=== PATIENT | female | born 1960 | race African-American/Black ===

== ENCOUNTER → 2020-02-22 | Day surgery (SDC) | payer BC ==
[2020-02-19 10:23] LABS: BASOPHILS # (AUTO) 0.1 (0.0-0.1); BASOPHILS % 0.6 % (0.0-1.0); EOSINOPHILS # (AUTO) 0.3 (0.0-0.4); EOSINOPHILS % 3.5 % (0.0-6.0); HEMATOCRIT 42.7 % (34.2-44.1); HEMOGLOBIN 13.2 g/dL (12.0-16.0); LYMPHOCYTES # (AUTO) 2.4 (1.0-3.2); LYMPHOCYTES % 29.9 % (18.0-39.1); MEAN CORPUSCULAR HEMOGLOBIN 29.1 pg (28-32); MEAN CORPUSCULAR HGB CONC 30.9 g/dL (31-35); MEAN CORPUSCULAR VOLUME 94.1 fL (81-99); MONOCYTES # (AUTO) 0.6 (0.2-0.8); MONOCYTES % 7.9 % (4.4-11.3); NEUTROPHILS # (AUTO) 4.6 (2.1-6.9); NEUTROPHILS % 57.8 % (38.7-80.0); PLATELET COUNT 312 x10e3/uL (140-360); RED BLOOD COUNT 4.54 x10e6/uL (3.6-5.1); RED CELL DISTRIBUTION WIDTH 14.6 % (11.7-14.4)
[2020-02-19 10:41] LABS: ALANINE AMINOTRANSFERASE 12 IU/L (0-55); ALBUMIN 3.6 g/dL (3.5-5.0); ALBUMIN/GLOBULIN RATIO 0.9 (0.8-2.0); ALKALINE PHOSPHATASE 123 IU/L (40-150); ANION GAP 10.1 mmol/L (8-16); BLOOD UREA NITROGEN 9 mg/dL (7-26); BUN/CREATININE RATIO 11 (6-25); CALCIUM 9.3 mg/dL (8.4-10.2); CARBON DIOXIDE 25 mmol/L (22-29); CHLORIDE 110 mmol/L (98-107); CREATININE, SERUM 0.82 mg/dL (0.57-1.11); EST GLOMERULAR FILTRATION RATE > 60 ML/MIN (60-); GLUCOSE 80 mg/dL (74-118); POTASSIUM 4.1 mmol/L (3.5-5.1); SODIUM 141 mmol/L (136-145)
[2020-02-19 10:54] LABS: INR 0.95; PROTHROMBIN TIME 13.2 seconds (11.9-14.5)
[2020-02-22] VITALS (11 sets, daily range): BP systolic 118–151; BP diastolic 61–77
[~2020-02-22] VITALS: Ht 151.1 cm; Wt 78.0 kg
[~2020-02-22] MED LIST: ASPIRIN EC81 MG PO; CLOPIDOGREL75 MG PO; FENTANYL CITRATE/PF 100MCG/2 ML INJ ONE; HEPARIN SOD/SOD CHLORIDE 2,000 ML ONE; IOPAMIDOL 300MG/ML 100 ML INFUS..BTL IV ONE; ISOSORBIDE MONO30 MG PO; LIDOCAINE HCL 2% LOCAL 20 ML VIAL ONE; LIPITOR20 MG PO; LISINOPRIL10 MG PO; METOPROLOL SUCC25 MG PO; MIDAZOLAM HCL 2 MG/2 ML VIAL ONE; SODIUM CHLORIDE 0.9% 1000ML 1,000 ML ONE
--- NOTE | 2020-02-22 09:17 | NUR ---
0917 am PREP NOTE PROCEDRAL .................................................................................. pt in #9, prepped for procedure. Alert oriented and appropriate, PERRLA, respirations even and unlabored to room air. Pulses x4 extremities equal and faint. Pedal pulses PT/DP weak to nonexistent and marked. Cap fill brisk < 3 sec. bilateral feet semi cool and pale. Skin warm and dry integrity appears intact in general. IV Rt ac started and presents healthy w/o s/s of infiltration or complaint. NS 0.9% started at 100ml/hr per dial flow. Abdomen soft and supple. pt offered toileting, denies need to urinate or defecate. Personal affects with patient. Family at bedside. Pt and family verbalizes understanding of POC. scheduled peripheral angio Dr Parsons ds/rn
--- NOTE | 2020-02-22 13:55 | NUR ---
1355pm RECEIVING NOTE TRAINING ANALYST RECOVERY DEPT............................................................... Bedside report received from THONY Johnson. [id number]. Alert oriented and appropriate, PERRLA, respirations even and unlabored to room air. Pulses x4 extremities equal and strong. Pedal pulses PT/DP X4 and marked. Cap fill brisk < 3 sec. Rt groin Mynx closure site NO gross issues pain,pallor,pressure or dysrhythmia. Down time 530pm. f/p 2wks Dr Orozco office Skin warm and dry integrity appears D/I. IV 20g to rt ac at 75cchr. Presents healthy w/o s/s of infiltration or complaint. Abdomen soft and supple. pt offered toileting, denies need to urinate or defecate. No personal affects with patient.Mother at bedside will come back 530pm. Dc plans completed. Currently w/o complaint of pain or need. teja/rn
--- NOTE | 2020-02-22 17:30 | NUR ---
1730pm MAINTENANCE MECHANIC 2ND SHIFT RECOVERY DISCHARGE NURSING NOTE Pt meets DC criteria. Skin assessed for s/s of complication and presence of hematoma. Skin warm, dry, no discolor, and pulses present. IV removed from left ac Distal tip appears intact. VS WNL. Pt denies pain, sob, or need at this time. Family at bs. Review of discharge paperwork and follow up instructions. verbalized understanding. Pt to wheelchair and transported to front of hospital. Transferred to private vehicle under own strength w/o incident with DC paperwork in hand. - teja/oksana
--- NOTE | 2020-04-18 20:11 | Operative Report ---
DATE OF PROCEDURE: 02/22/2020 SURGEON: Henry Parsons DO REPORT TITLE: Cardiology Procedure Note. BODY AFTER REPORT TITLE: PROCEDURES PERFORMED: 1. Conscious sedation, 1 hour and 45 minutes. 2. Abdominal aortography. 3. Peripheral angiography of the left lower extremity. 4. Catheter placement in the aorta. 5. Bilateral extremity angiography. 6. Directional atherectomy and percutaneous transluminal angioplasty of the left superficial femoral artery. 7. Percutaneous transluminal angioplasty of the left anterior tibial artery. PREPROCEDURE DIAGNOSIS: Peripheral arterial disease with claudication. POSTPROCEDURE DIAGNOSIS: Peripheral arterial disease with claudication. ESTIMATED BLOOD LOSS: Less than 20 mL. SPECIMENS REMOVED: None. PROCEDURE IN DETAIL: After informed consent was obtained, the patient was brought to the cardiac catheterization laboratory in a fasting and nonsedated state. Bilateral groins were prepped and draped usual sterile fashion. A 2% lidocaine was used for the right anterior groin for local anesthesia. Using micropuncture needle, the right common femoral artery was accessed via the modified Seldinger technique and a 6-Lao sheath was placed. An Omni Flush catheter was taken in the infrarenal abdominal aorta and abdominal aortography was performed. This catheter was taken up and over the iliac bifurcation and left lower extremity angiography was performed. This revealed significant stenotic areas in the left superficial femoral and tibial vessels. A decision was made to perform a peripheral intervention. The patient received systemic heparin for therapeutic anticoagulation. Prior to all this, the patient received fentanyl and midazolam administered by the garden labourer nurse and neurologic and physiologic status was monitored by myself and garden labourer staff for an hour and 45 minutes. Next, a [place] Advantage wire was parked in the distal vessel and a 6-Lao sheath was crossed up over the iliac bifurcation.The catheter was taken distally in the 3rd order position and distal angiography was performed. I was able to cross the 70% anterior tibial artery stenosis with 0.014 inch working wire and directional atherectomy was performed. Next, 3/2.5 x 210 mm NanoCross balloon was used for angioplasty of the anterior tibial artery. I performed orbital atherectomy of the left superficial femoral artery with percutaneous transluminal angioplasty with a 5 x 250 impact abnormal drug coated balloon. The patient tolerated the procedure well with no immediate complications and was transferred to room in stable condition. PROCEDURE FINDINGS: 1. Infrarenal abdominal aorta and iliac vessels bilaterally are patent. 2. The left superficial femoral artery has a long tubular 70% stenosis with a 40 mm gradient. The popliteal artery is patent. The tibioperoneal trunk is patent. The anterior tibial artery has a 70% stenosis. The peroneal artery has a 50% to 60% non-flow limiting stenosis. The entire length of the posterior tibial artery of the left lower extremity is occluded and the posterior tibial at the ankle fills in via collaterals from the peroneal vessel. 3. The right common femoral and proximal superficial femoral artery are patent. The distal SFA is 50 to 60% stenosis. There was washout of the right lower extremity angiography and the tibial vessels were not visualized. IMPRESSION: Severe peripheral artery disease, status post directional atherectomy and percutaneous transluminal angioplasty of the left superficial femoral artery and percutaneous transluminal angioplasty of the left anterior tibial artery. RECOMMENDATIONS: Continue aggressive medical therapy for her peripheral arterial disease. DO LUCIE Rouse/CHARLESL /[id number]
== END | disposition home or self-care (01) ==
LOC: CATH LAB 07:52
PROVIDERS: ATTEND Internal Medicine Cardiovascular Disease
DX: I70.212 Atherosclerosis of native arteries of extremities with intermittent claudication, left leg (principal); I25.10 Atherosclerotic heart disease of native coronary artery without angina pectoris; I10 Essential (primary) hypertension; E78.5 Hyperlipidemia, unspecified; Z72.0 Tobacco use; Z01.812 Encounter for preprocedural laboratory examination; Z11.59 Encounter for screening for other viral diseases; Z68.35 Body mass index [BMI] 35.0-35.9, adult; Z82.49 Family history of ischemic heart disease and other diseases of the circulatory system; Z82.3 Family history of stroke
CPT/HCPCS: 36415; 37225; 37228; 75625; 80053; 85025; 85610; C1760; C1769 ×2; C1887 ×2; J2001; J2250; J3010; J7030; Q9967; U0002; 36247; 37224; 37226; 75630; 99152; 99153